=== PATIENT | male | born 1975 | race Hispanic/Latino ===

== ENCOUNTER → 2020-10-14 | Outpatient (CLI) | payer BC | END | disposition home or self-care (01) | LOC: RAH 14:24 | PROVIDERS: ATTEND Internal Medicine | DX: M47.27 Other spondylosis with radiculopathy, lumbosacral region (principal); M51.36 Other intervertebral disc degeneration, lumbar region | CPT/HCPCS: 72100 ==

== ENCOUNTER 2023-04-29 06:48 | Day surgery (SDC) | payer BC ==
[2023-04-27 12:39] VITALS: BP 147/92; PULSE 65; RESP 11
[2023-04-29] VITALS (16 sets, daily range): BP systolic 119–158; BP diastolic 85–98; PULSE 61–74; RESP 11–16
[~2023-04-29] VITALS: Ht 172.7 cm; Wt 115.0 kg
[~2023-04-29 06:48] MED LIST: LOSA1TAB42 PO
[2023-04-29] MEDS ORDERED: LACTATED RINGERS 1000ML 1,000 ML IV ONE (07:08)
[2023-04-29] MEDS ORDERED: LEVOFLOXACIN 500 MG/D5W 100 ML 100 ML ONE (07:08)
[2023-04-29] MEDS ORDERED: BACITRACIN 28.4 GM OINT TP ONE ×2 (07:17→08:34)
[2023-04-29] MEDS ORDERED: BUPIVACAINE/PF 0.25% 30ML VIAL IJ ONE (07:17)
[2023-04-29 07:23] LABS: BASOPHILS # (AUTO) 0.02 K/uL (0.00-0.20); BASOPHILS % (AUTO) 0.3 % (0.0-5.0); EOSINOPHILS # (AUTO) 0.11 K/uL (0.00-0.70); EOSINOPHILS % (AUTO) 1.4 % (0.0-8.0); HEMATOCRIT 42.4 % (42-54); IMMATURE GRANULOCYTE ABSOLUTE 0.05 K/uL (0-1); LYMPHOCYTES # (AUTO) 2.4 K/uL (1.0-4.8); LYMPHOCYTES % (AUTO) 31.1 % (21.0-51.0); MEAN CORPUSCULAR HEMOGLOBIN 26.9 pg (27.0-33.0); MEAN CORPUSCULAR VOLUME 81.5 fL (79-99); MONOCYTES # (AUTO) 0.5 K/uL (0.1-1.0); NEUTROPHILS # (AUTO) 4.6 K/uL (1.8-7.7); NEUTROPHILS % (AUTO) 59.6 % (40.0-77.0); PLATELET COUNT (AUTO) 210 K/uL (130-400); RED CELL DISTRIBUTION WIDTH 14.6 % (11.0-15.5); WHITE BLOOD COUNT (AUTO) 7.7 K/uL (4.8-10.8)
[2023-04-29 07:35] LABS: CREATININE 1.2 mg/dL (0.5-1.5); POTASSIUM 3.7 mmol/L (3.5-5.1)
[2023-04-29] MEDS ORDERED: BUPIVACAINE/PF 0.25% 10ML VIAL IJ ONE ×2 (07:38→08:33)
[2023-04-29] MEDS ORDERED: LIDOCAINE PF 100MG/5ML (2%) SYRINGE 5ML ONE (08:15)
[2023-04-29] MEDS ORDERED: PROPOFOL 10 MG/ML 20ML VIAL IV ONE (08:16)
[2023-04-29] MEDS ORDERED: FENTANYL CITRATE PF 50 MCG/1 ML 2ML VIAL ONE ×2 (08:16→08:32)
[2023-04-29] MEDS ORDERED: DEXAMETHASONE SOD PHOSPHATE 4 MG/ML 1ML VIAL ONE (08:16)
[2023-04-29] MEDS ORDERED: MIDAZOLAM HCL 1 MG/ML 2ML VIAL ONE (08:16)
[2023-04-29] MEDS ORDERED: CEFAZOLIN SODIUM 2 GM VIAL IVPB ONE (08:23)
[2023-04-29] MEDS ORDERED: ONDANSETRON 4MG INJ ONE ×2 (08:29→09:40)
[2023-04-29] MEDS ORDERED: KETOROLAC 30MG VIAL (30MG/ML) ONE (08:58)
[2023-04-29] MEDS ORDERED: MEPERIDINE-PF 25 MG/ML SYG ONE (09:40)
== END 2023-04-29 10:40 | disposition home or self-care (01) ==
LOC: DAH 06:48
PROVIDERS: ATTEND Urology
DX: Z30.2 Encounter for sterilization (principal); I10 Essential (primary) hypertension; E78.5 Hyperlipidemia, unspecified; E66.01 Morbid (severe) obesity due to excess calories; Z87.891 Personal history of nicotine dependence; Z88.0 Allergy status to penicillin; Z68.39 Body mass index [BMI] 39.0-39.9, adult
CPT/HCPCS: 55250; 80048; 85025; 36415; 88302; A6260; A4510; A4663; J7120; J3010 ×2; J1956; J0665 ×3; J2001; J2250; J2704; J2405 ×2; J1885; J1100; J2175; J0690; A4215; A4223; A4222; A4221; A4600; J3490